=== PATIENT | female | born 1975 | race Two or more races ===

== ENCOUNTER 2020-12-23 14:11 | Outpatient (CLI) | payer OTHER ==
[2020-12-26] MEDS ORDERED: SINGULAIR10 MG PO (11:42)
[2020-12-26] MEDS ORDERED: VITAMIN D3 PO (11:42)
[2020-12-26] MEDS ORDERED: BREO ELLIPTA 21 EACH IH (11:43)
[2020-12-26] MEDS ORDERED: PREVACID30 MG PO (11:43)
[2020-12-26] MEDS ORDERED: METHYLPREDNISOLO4 M1 PO (12:33)
== END 2020-12-23 14:30 | disposition home or self-care (01) ==
LOC: TOM 14:11
PROVIDERS: ATTEND Internal Medicine Pulmonary Disease
DX: R07.89 Other chest pain (principal); J31.1 Chronic nasopharyngitis; J45.909 Unspecified asthma, uncomplicated

== ENCOUNTER 2020-12-29 06:34 | Day surgery (SDC) | payer OTHER ==
[~2020-12-29 06:34] MED LIST: BREO ELLIPTA 21 EACH IH; METHYLPREDNISOLO4 M1 PO; PREVACID30 MG PO; SINGULAIR10 MG PO; VITAMIN D3 PO
[2020-12-29] MEDS ORDERED: ULTRACET PO (13:09)
[2020-12-29] MEDS ORDERED: PROTONIX40 MG PO (13:10)
== END 2020-12-29 13:55 | disposition home or self-care (01) ==
LOC: CIR.AMB 06:34
PROVIDERS: ATTEND Surgery
DX: K81.1 Chronic cholecystitis (principal); Z20.822 Contact with and (suspected) exposure to COVID-19